=== PATIENT | male | born 1950 | race Caucasian/White ===

== ENCOUNTER 2017-02-14 08:05 | Day surgery (SDC) | payer MEDICARE, OTHER ==
[~2017-02-14] VITALS: Ht 167.6 cm; Wt 90.0 kg
[~2017-02-14 08:05] MED LIST: ASPIRIN 32325 MG/TA1 PO; ASPIRIN 81M81 MG/TA2 PO; BYSTOLIC10 MG PO; CARAFATE 1GM1 G PO; COREG CR80 MG PO; COZAAR100 MG PO; CRESTOR20 MG PO; EPA1000 MG PO; KLOR-CON M2020 MEQ PO; KRILL OIL 1,001 EAC1 PO; LASIX 40MG TABL40 MG PO; LIPITOR 80MG80 MG PO; NORCO 325 MG-7.1 TAB PO; NORVASC 5MG5 MG/TAB PO; PEPCID 20MG TAB20 MG PO; PLAVIX 75MG TAB75 MG PO; PRILOSEC 20MG20 MG PO; ROXICODONE 55 MG/TAB PO; ZETIA 10MG TAB10 MG PO
[2017-02-14 08:40] VITALS: BP 131/71; PULSE 65; TEMP 98.5
[2017-02-14] MEDS ORDERED: DEXILANT60 MG PO (08:56)
[2017-02-14] MEDS ORDERED: PLAVIX 75MG TAB75 MG PO (09:00)
[2017-02-14] MEDS ORDERED: THE MEDICINE S200 M2 PO (09:06)
[2017-02-14] MEDS ORDERED: [UNRECOGNIZED DRUG - OTHER] PO (09:06)
[2017-02-14] MEDS ORDERED: MASON NATURAL2000 IU PO (09:07)
[2017-02-14] MEDS ORDERED: CENTRUM SILVER1 CTB PO (09:08)
[2017-02-14 10:15] VITALS: BP 99/56; PULSE 63; TEMP 97.7
[2017-02-14 10:30] VITALS: BP 104/68; PULSE 61
[2017-02-14 10:45] VITALS: BP 111/68; PULSE 60
[2017-02-14 11:00] VITALS: BP 119/73; PULSE 60
== END 2017-02-14 11:50 | disposition home or self-care (01) ==
LOC: SDCO 08:05
DX: K22.70 Barrett's esophagus without dysplasia (principal); K44.9 Diaphragmatic hernia without obstruction or gangrene; K29.30 Chronic superficial gastritis without bleeding; I11.0 Hypertensive heart disease with heart failure; I50.9 Heart failure, unspecified; I25.10 Atherosclerotic heart disease of native coronary artery without angina pectoris; I25.2 Old myocardial infarction; K21.9 Gastro-esophageal reflux disease without esophagitis; E78.5 Hyperlipidemia, unspecified; Z95.5 Presence of coronary angioplasty implant and graft; Z95.1 Presence of aortocoronary bypass graft; Z98.52 Vasectomy status; Z89.021 Acquired absence of right finger(s)
CPT/HCPCS: OP; J2250; J2704; J7030

== ENCOUNTER 2017-05-16 08:14 | Day surgery (SDC) | payer MEDICARE, OTHER ==
[~2017-05-16] VITALS: Ht 167.6 cm; Wt 95.0 kg
[~2017-05-16 08:14] MED LIST changes: +CENTRUM SILVER1 CTB PO; +DEXILANT60 MG PO; +THE MEDICINE S200 M2 PO; +VITAMIN D 1001000 IU PO; +[UNRECOGNIZED DRUG - OTHER] PO
[2017-05-16] MEDS ORDERED: PROTONIX 40MG T40 MG PO (08:29)
[2017-05-16 08:54] VITALS: BP 157/92; PULSE 64; TEMP 98.1
[2017-05-16 10:05] VITALS: BP 118/75; PULSE 63; TEMP 97.7
[2017-05-16 10:20] VITALS: BP 110/71; PULSE 62
[2017-05-16 10:35] VITALS: BP 118/69; PULSE 60
== END 2017-05-16 11:07 | disposition home or self-care (01) ==
LOC: SDCO 08:14
DX: K22.70 Barrett's esophagus without dysplasia (principal); K44.9 Diaphragmatic hernia without obstruction or gangrene; I25.10 Atherosclerotic heart disease of native coronary artery without angina pectoris; I50.9 Heart failure, unspecified; I11.0 Hypertensive heart disease with heart failure; I25.2 Old myocardial infarction; K21.9 Gastro-esophageal reflux disease without esophagitis; D64.9 Anemia, unspecified; Z98.52 Vasectomy status; Z95.5 Presence of coronary angioplasty implant and graft; Z89.021 Acquired absence of right finger(s); Z79.01 Long term (current) use of anticoagulants
CPT/HCPCS: OP; J2704; J3010; J7030

== ENCOUNTER → 2021-05-19 | Outpatient (CLI) | payer MEDICARE, OTHER ==
[~2021-05-19] MED LIST changes: +PROTONIX 40MG T40 MG PO
== END ==
LOC: COL.RAD 10:52
DX: M47.816 Spondylosis without myelopathy or radiculopathy, lumbar region (principal); M48.061 Spinal stenosis, lumbar region without neurogenic claudication; M48.07 Spinal stenosis, lumbosacral region; M54.42 Lumbago with sciatica, left side

== ENCOUNTER 2023-07-04 08:57 | Day surgery (SDC) | payer MEDICARE, OTHER ==
[~2023-07-04] VITALS: Ht 170.2 cm; Wt 89.6 kg
[~2023-07-04 08:57] MED LIST changes: +LR 1,000 ML IV SCH; +Ondansetron 4 MG/2 ML VIAL IV PRN
[2023-07-04] MEDS ORDERED: Glycopyrrolate 0.2 MG/ML 1 ML VIAL ONE (10:05)
[2023-07-04] MEDS ORDERED: Lidocaine PF 2% (20 MG/ML) 5 ML VIAL ONE (10:05)
[2023-07-04] MEDS ORDERED: FARXIGA10 PO (10:11)
[2023-07-04] MEDS ORDERED: BENICAR40 MG PO (10:14)
[2023-07-04 10:50] VITALS: BP 86/58; PULSE 65; TEMP 98.5
[2023-07-04 10:58] VITALS: BP 124/76; PULSE 65; TEMP 97.5
[2023-07-04 11:05] VITALS: BP 111/63; PULSE 64
[2023-07-04 11:20] VITALS: BP 118/64; PULSE 64
--- NOTE | 2023-07-04 11:43 | NUR ---
[id number]: PT TO RECOVERY BAY 3 FROM ENDO S/P ENDOSCOPY WITH BIOPSIES A&O, PLACED ON MONITOR, VSS ON RA RECEIVED REPORT AND ASSUMED CARE OF PT FROM JOSELUIS CRISTINA AT BEDSIDE PROVIDED FOOD/FLUIDS, TOLERATING WELL MD IN TO SPEAK WITH PT/FAMILY POST-PROCEDURE PT HAS REMAINED A&O, NAD, VSS ON RA, TOLERATING PO, IS WITHOUT SIGNIFICANT COMPLAINT, WITH STEADY GAIT THRU OUT STAY IV D/C'D. D/C INSTRUCTIONS, ANY FOLLOW UP REVIEWED AND HANDED TO PT. ALL QUESTIONS AND CONCERNS ADDRESSED TO PT SATISFACTION. TAKEN TO EXIT VIA W/C WITH ALL BELONGINGS AND PAPERWORK IN HAND, ASSISTED INTO PASSENGER SEAT OF POV. TO DRIVE HOME.
== END 2023-07-04 11:40 | disposition home or self-care (01) ==
LOC: SDCO 08:57
DX: K31.7 Polyp of stomach and duodenum (principal); K21.00 Gastro-esophageal reflux disease with esophagitis, without bleeding; K44.9 Diaphragmatic hernia without obstruction or gangrene; K22.70 Barrett's esophagus without dysplasia; K29.30 Chronic superficial gastritis without bleeding; K29.80 Duodenitis without bleeding; K31.89 Other diseases of stomach and duodenum; I25.2 Old myocardial infarction; I10 Essential (primary) hypertension; Z95.5 Presence of coronary angioplasty implant and graft; Z95.1 Presence of aortocoronary bypass graft; Z95.810 Presence of automatic (implantable) cardiac defibrillator; Z89.021 Acquired absence of right finger(s)
CPT/HCPCS: J2704; J7120